=== PATIENT | female | born 2000 | race Caucasian/White ===

== ENCOUNTER → 2021-02-22 | Outpatient (CLI) | payer OTHER ==
[2021-02-22 17:37] LABS: HEMATOCRIT 35.9 % (36.0-47.0); HEMOGLOBIN 11.9 g/dl (12.0-15.5); MEAN CORPUSCULAR HEMOGLOBIN 28.5 pg (27.0-33.0); MEAN CORPUSCULAR HGB CONC 33.1 g/dl (32.0-36.5); MEAN CORPUSCULAR VOLUME 85.9 fl (80.0-96.0); PLATELET COUNT, AUTOMATED 245 10^3/uL (150-450); RED BLOOD COUNT 4.18 10^6/uL (4.00-5.40); WHITE BLOOD COUNT 10.5 10^3/uL (4.0-10.0)
[2021-02-22 20:08] LABS: GC DNA AMPLIFICATION NEGATIVE (NEGATIVE)
== END ==
LOC: M PLALAB 14:34
PROVIDERS: ATTEND Specialist
DX: Z34.82 Encounter for supervision of other normal pregnancy, second trimester (principal)

== ENCOUNTER → 2021-03-31 | Outpatient (CLI) | payer OTHER ==
--- NOTE | 2021-04-02 07:18 | REP ---
INDICATION: ANATOMY COMPARISON: None. TECHNIQUE: Transabdominal obstetrical ultrasound with color Doppler evaluation. FINDINGS: Examination demonstrates a single live intrauterine in breech presentation. motion is identified by technologist. Placenta is noted posterior and grade 2 without evidence for placenta previa or abruption. Amniotic fluid volume is normal. Cervix measures 5.0 cm in length and appears closed.. Selected gestational age: 29 weeks 0 days with WHIT 06/16/2021. Gestational age by current measurements 29 weeks 4 days with WHIT 06/12/2021. FHR equals 142 beats per minute. Estimated weight 1441 grams (64thpercentile). CHATO: 12.1 cm Umbilical artery SD ratio: 2.15 Anatomical assessment demonstrates normal structures including cranium, choroid plexus, cavum, cerebellum/posterior fossa, lungs, four-chamber heart, diaphragm, stomach, cord insertion/three-vessel cord, kidneys/bladder, spine, and extremities. Limited evaluation of the facial features and cardiac ventricular outflow tracts due to positioning. IMPRESSION: Single live intrauterine in breech presentation demonstrating appropriate estimated weight and growth. Anatomical limitations as noted above may warrant re-evaluation and follow-up. <Electronically signed by Dante Mejia > 04/02/21 [id number]
== END ==
LOC: M WHC 12:05
PROVIDERS: ATTEND Specialist
DX: Z34.82 Encounter for supervision of other normal pregnancy, second trimester (principal); Z3A.29 29 weeks gestation of pregnancy

== ENCOUNTER 2021-04-24 08:49 | Outpatient (CLI) | payer OTHER ==
[~2021-04-24] VITALS: Ht 170.2 cm; Wt 88.4 kg
[2021-04-24 09:05] VITALS: BP 140/93
[2021-04-24] MEDS ORDERED: PRENTAB9 PO (09:18)
[2021-04-24 09:20] VITALS: BP 136/93
[2021-04-24 09:35] VITALS: BP 128/76
[2021-04-24 10:08] VITALS: BP 138/78
[2021-04-24 10:42] LABS: HEMATOCRIT 33.1 % (36.0-47.0); MEAN CORPUSCULAR HEMOGLOBIN 28.1 pg (27.0-33.0); MEAN CORPUSCULAR HGB CONC 33.2 g/dl (32.0-36.5); MEAN CORPUSCULAR VOLUME 84.4 fl (80.0-96.0); PLATELET COUNT, AUTOMATED 231 10^3/uL (150-450); RED BLOOD COUNT 3.92 10^6/uL (4.00-5.40); WHITE BLOOD COUNT 11.2 10^3/uL (4.0-10.0)
--- NOTE | 2021-04-24 11:01 | REP ---
INDICATION: vaginal bleeding, evaluate placenta COMPARISON: None. TECHNIQUE: Transabdominal obstetrical ultrasound with color Doppler evaluation. FINDINGS: Examination demonstrates a single live intrauterine in cephalic presentation. motion is identified by technologist. Placenta is noted posteriorly and grade 2 without evidence for placenta previa or obvious abruption. However, evaluation of the placenta is somewhat limited due to advanced age and positioning. Amniotic fluid volume is normal. Cervix measures 5.2 cm in length and appears closed.. Selected gestational age: 32 weeks 3 days with WHIT 06/16/2021. FHR equals 133 beats per minute. CHATO: 10.1 cm Umbilical artery SD ratio: 2.22 (1.82-3.83) Limited anatomical assessment demonstrates no obvious abnormality. IMPRESSION: Limited evaluation of the placenta. No obvious abnormality noted. <Electronically signed by Dante Mejia > 04/24/21 [id number]
[2021-04-24 11:11] LABS: CREATININE,RANDOM URINE 74.8 MG/DL; TOTAL PROTEIN,RANDOM URINE 11.1 MG/DL (0.0-12.0)
[2021-04-24 11:11] LABS: ALT/SGPT 16 U/L (12-78); BILIRUBIN,TOTAL 0.2 MG/DL (0.2-1.0); CREATININE FOR GFR 0.39 MG/DL (0.55-1.30); GLOMERULAR FILTRATION RATE > 60.0 (>60); LDH LACTATE DEHYDROGENASE 192 U/L (84-246); URIC ACID 2.9 MG/DL (2.6-6.0)
--- NOTE | 2021-04-24 12:04 | IPNPDOC ---
Text Note Date of Service The patient was seen on 04/24/21. NOTE Subjective: Ana Cristina is a 21-year-old female who is a at 32.3 weeks [facility] with an WHIT of 06/16/21 based off of her LMP and consistent with her 2nd trimester ultrasound. She initiated care in her second trimester with [facility]. Her has been complicated by minimal care and a history of a previous section. She presents to L&D today with complaints of vaginal bleeding. She reports having intercourse last night and woke up this morning with blood in her underwear mixed with a few small clots. She reports active movement. Denies leaking of fluid or contractions. OB Hx: 09/2019 and 11/2019 miscarriage; 03/07/18 primary LTCS of living male weighting 8 lbs at 40 weeks due to arrest of dilation. Medical Hx: non-contributory Family Hx: non-contributory Surgical Hx: tonsillectomy and section Social Hx: , denies being a smoker, use of alcohol or drugs. Objective: VS, US, labs: see below. FHR:130, moderate variability, positive accelerations, no decelerations. [place]: one contraction noted. General: Alert and oriented. Does not appear to be in any distress. Respiratory: Regular rate without use of accessory muscles. Abdomen: soft and not tender to palpation SSE: cervix anterior, thick and closed. No bleeding noted in the vagina or coming from cervix. Cultures obtained for STIs and genital culture. Assessment: IUP at 32.3, vaginal bleeding after intercourse Plan: Reviewed normal cervical length and normal ultrasound. She had one small episode of bleeding noted prior to discharge that was the size of a silver dollar. Reviewed findings with Dr. Brown and he recommended discharge to home. Encouraged patient pelvic rest. Reviewed access to care, kick count, labor signs and danger signs to report. She has an appointment this week on Saturday, which was encouraged for her to attend. VS,Jaee, I+O VS, Jaee, I+O Laboratory Tests 04/24/21 10:15 Vital Signs Date Time Temp Pulse Resp B/P (MAP) Pulse Ox O2 Delivery O2 Flow Rate FiO2 04/24/21 10:08 76 18 138/78 (98) 04/24/21 09:05 98.3 Item Value Date Time White Blood Count 11.2 10^3/uL H 04/24/21 1015 Red Blood Count 3.92 10^6/uL L 04/24/21 1015 Hemoglobin 11.0 g/dl L 04/24/21 1015 Hematocrit 33.1 % L 04/24/21 1015 Mean Corpuscular Volume 84.4 fl 04/24/21 1015 Mean Corpuscular Hemoglobin 28.1 pg 04/24/21 1015 Mean Corpuscular Hemoglobin Concent 33.2 g/dl 04/24/21 1015 Red Cell Distribution Width 13.5 % 04/24/21 1015 Platelet Count 231 10^3/uL 04/24/21 1015 Item Value Date Time Creatinine 0.39 MG/DL L 04/24/21 1015 Glomerular Filtration Rate > 60.0 04/24/21 1015 Uric Acid 2.9 MG/DL 04/24/21 1015 Total Bilirubin 0.2 MG/DL 04/24/21 1015 Aspartate Amino Transf (AST/SGOT) 14 U/L 04/24/21 1015 Alanine Aminotransferase (ALT/SGPT) 16 U/L 04/24/21 1015 Lactate Dehydrogenase 192 U/L 04/24/21 1015 Item Value Date Time Urine Random Creatinine 74.8 MG/DL 04/24/21 1025 Urine Random Total Protein 11.1 MG/DL 04/24/21 1025 EXAMINATION REQUESTED: Obs. Limited, CHATO US REASON FOR PATIENT VISIT: VAGINAL BLEEDING. REASON FOR EXAM/COMMENT: vaginal bleeding, evaluate placenta INDICATION: vaginal bleeding, evaluate placenta COMPARISON: None. TECHNIQUE: Transabdominal obstetrical ultrasound with color Doppler evaluation. FINDINGS: Examination demonstrates a single live intrauterine in cephalic presentation. motion is identified by technologist. Placenta is noted posteriorly and grade 2 without evidence for placenta previa or obvious abruption. However, evaluation of the placenta is somewhat limited due to advanced age and positioning. Amniotic fluid volume is normal. Cervix measures 5.2 cm in length and appears closed.. Selected gestational age: 32 weeks 3 days with WHIT 06/16/2021. FHR equals 133 beats per minute. CHATO: 10.1 cm Umbilical artery SD ratio: 2.22 (1.82-3.83) Limited anatomical assessment demonstrates no obvious abnormality. IMPRESSION: Limited evaluation of the placenta. No obvious abnormality noted. <Electronically signed by Dante Mejia > 04/24/21 1057 EMILI ROMAN CNM Apr 24, 2021 12:04
[2021-04-24 12:20] LABS: GC DNA AMPLIFICATION NEGATIVE (NEGATIVE)
== END 2021-04-24 11:33 | disposition home or self-care (01) ==
LOC: M LDO 08:49
PROVIDERS: ATTEND Advanced Practice Midwife
DX: O26.853 Spotting complicating pregnancy, third trimester (principal); O34.219 Maternal care for unspecified type scar from previous cesarean delivery; Z3A.32 32 weeks gestation of pregnancy
CPT/HCPCS: 36415; 59025; 76815; 76820; 82247; 82565; 82570; 83615; 84156; 84450; 84460; 84550; 85027; 87070; 87077; 87661; G0378; G0463

== ENCOUNTER 2021-04-26 09:41 | Inpatient (IN) | payer OTHER ==
[~2021-04-26] VITALS: Ht 170.2 cm; Wt 88.6 kg
[2021-04-26 09:59] VITALS: BP 123/74
[2021-04-26] MEDS ORDERED: LACTATED RINGER'S 1000 ML IV STA (11:40)
[2021-04-26] MEDS: BETAMETHASONE SOLUSPAN 6MG/ML 5ML VIAL (J0702 PER 3MG) IM SCH (12:03)
[2021-04-26 12:13] LABS: HEMATOCRIT 32.4 % (36.0-47.0); HEMOGLOBIN 10.8 g/dl (12.0-15.5); MEAN CORPUSCULAR HEMOGLOBIN 27.6 pg (27.0-33.0); MEAN CORPUSCULAR HGB CONC 33.3 g/dl (32.0-36.5); MEAN CORPUSCULAR VOLUME 82.9 fl (80.0-96.0); PLATELET COUNT, AUTOMATED 229 10^3/uL (150-450); RED BLOOD COUNT 3.91 10^6/uL (4.00-5.40); WHITE BLOOD COUNT 10.5 10^3/uL (4.0-10.0)
[2021-04-26 12:14] VITALS: BP 142/86
[2021-04-26] MEDS ORDERED: AZITHROMYCIN 250MG TABLET PO ONE (13:00)
[2021-04-26] MEDS: AMPICILLIN SOD 2 GM in D5W MINI-BAG PLUS 100 ML IV SCH ×2 (13:05→18:17)
[2021-04-26 13:27] LABS: HIV 1&2 SCREEN CENTAUR NEGATIVE (NEGATIVE)
[2021-04-26] MEDS: LR 1,000 ML IV SCH (13:50)
[2021-04-26 16:09] VITALS: BP 126/60
[2021-04-27] MEDS: AMPICILLIN SOD 2 GM in D5W MINI-BAG PLUS 100 ML IV SCH ×4 (01:06→18:31)
[2021-04-27] MEDS: LR 1,000 ML IV SCH ×3 (07:27→21:35)
[2021-04-27 07:30] VITALS: BP 112/53
[2021-04-27 10:11] VITALS: BP 133/59
[2021-04-27] MEDS: BETAMETHASONE SOLUSPAN 6MG/ML 5ML VIAL (J0702 PER 3MG) IM SCH (12:02)
[2021-04-27 14:00] VITALS: BP 122/64
[2021-04-27 18:01] VITALS: BP 132/60
[2021-04-27 22:07] VITALS: BP 117/56
[2021-04-28] MEDS: AMPICILLIN SOD 2 GM in D5W MINI-BAG PLUS 100 ML IV SCH ×2 (00:41→06:42)
[2021-04-28 02:17] VITALS: BP 106/50
[2021-04-28 05:55] VITALS: BP 128/59
[2021-04-28] MEDS: LR 1,000 ML IV SCH ×3 (06:42→19:19)
[2021-04-28 09:58] VITALS: BP 119/58
[2021-04-28 14:00] VITALS: BP 122/60
[2021-04-28] MEDS: AMOXICILLIN 500 MG CAP PO SCH ×2 (14:13→22:06)
[2021-04-28] MEDS ORDERED: HOME MED LIST COMPLETE! XX SCH (17:10)
[2021-04-28 18:00] VITALS: BP 124/66
[2021-04-28] MEDS ORDERED: AMOXICILLIN SUSP 250MG/5ML 100ML BOTTLE (FOR INPATIENT ORDERS) PO SCH (19:00)
[2021-04-28 22:00] VITALS: BP 100/56
[2021-04-29 02:00] VITALS: BP 118/59
[2021-04-29] MEDS: LR 1,000 ML IV SCH ×3 (02:52→20:07)
[2021-04-29 06:00] VITALS: BP 117/63
[2021-04-29] MEDS: AMOXICILLIN 500 MG CAP PO SCH ×3 (06:01→22:36)
[2021-04-29 10:10] VITALS: BP 128/60
[2021-04-29 17:56] VITALS: BP 142/81
[2021-04-29 22:00] VITALS: BP 116/61
[2021-04-30] MEDS: LR 1,000 ML IV SCH ×3 (01:30→17:16)
[2021-04-30 02:00] VITALS: BP 107/56
[2021-04-30] MEDS: AMOXICILLIN 500 MG CAP PO SCH ×3 (05:58→22:00)
[2021-04-30 06:00] VITALS: BP 130/68
[2021-04-30 10:14] VITALS: BP 131/63
[2021-04-30 17:55] VITALS: BP 128/66
[2021-04-30 21:57] VITALS: BP 125/60
[2021-05-01 02:29] VITALS: BP 119/57
[2021-05-01 06:03] VITALS: BP 118/58
[2021-05-01] MEDS: AMOXICILLIN 500 MG CAP PO SCH ×3 (07:10→22:00)
[2021-05-01 09:53] VITALS: BP 123/71
[2021-05-01] MEDS: LR 1,000 ML IV SCH ×2 (11:00→20:00)
[2021-05-01 14:00] VITALS: BP 138/79
[2021-05-01 18:00] VITALS: BP 135/89
[2021-05-01 22:00] VITALS: BP 120/72
[2021-05-02 02:00] VITALS: BP 135/90
[2021-05-02 06:00] VITALS: BP 136/63
[2021-05-02] MEDS: AMOXICILLIN 500 MG CAP PO SCH (06:00)
[2021-05-02 10:00] VITALS: BP 138/74
[2021-05-02 14:00] VITALS: BP 137/72
[2021-05-02 18:32] VITALS: BP 131/74
[2021-05-02] MEDS: LR 1,000 ML IV SCH (19:27)
[2021-05-02 22:08] VITALS: BP 126/72
[2021-05-03 02:00] VITALS: BP 116/62
[2021-05-03] MEDS: LR 1,000 ML IV SCH ×3 (04:02→17:23)
[2021-05-03 06:00] VITALS: BP 127/66
[2021-05-03 09:59] VITALS: BP 108/53
[2021-05-03 18:05] VITALS: BP 108/60
[2021-05-03 20:00] VITALS: BP 108/60
[2021-05-03 22:00] VITALS: BP 100/55
[2021-05-04 02:00] VITALS: BP 127/59
[2021-05-04] MEDS: LR 1,000 ML IV SCH ×3 (04:15→17:31)
[2021-05-04 06:00] VITALS: BP 125/73
[2021-05-04 10:00] VITALS: BP 139/74
[2021-05-04 14:00] VITALS: BP 130/62
[2021-05-04 18:00] VITALS: BP 137/71
[2021-05-04 22:00] VITALS: BP 130/76
[2021-05-05] VITALS (9 sets, daily range): BP systolic 106–125; BP diastolic 55–62
[2021-05-05 05:40] LABS: HEMATOCRIT 29.5 % (36.0-47.0); HEMOGLOBIN 9.8 g/dl (12.0-15.5); MEAN CORPUSCULAR HEMOGLOBIN 28.1 pg (27.0-33.0); MEAN CORPUSCULAR HGB CONC 33.2 g/dl (32.0-36.5); MEAN CORPUSCULAR VOLUME 84.5 fl (80.0-96.0); PLATELET COUNT, AUTOMATED 225 10^3/uL (150-450); RED BLOOD COUNT 3.49 10^6/uL (4.00-5.40); WHITE BLOOD COUNT 11.5 10^3/uL (4.0-10.0)
[2021-05-05] MEDS ORDERED: MORPHINE PRES-FREE INJ 10 MG/10 ML VIAL (J2274) As Ordered ONE (07:11)
[2021-05-05] MEDS ORDERED: OXYTOCIN 30 UNITS IN 0.9% NaCl 500ML IV BAG (J2590) As Ordered ONE ×2 (07:12→10:38)
[2021-05-05] MEDS ORDERED: ceFAZolin SOD 2 GM in IV 1 EA IV ONE (07:35)
[2021-05-05] MEDS ORDERED: BICITRA 30ML SOLN UDC PO ONE (07:35)
[2021-05-05] MEDS: LR 1,000 ML IV SCH (07:55)
[2021-05-05] MEDS ORDERED: METOCLOPRAMIDE INJ 10MG/2ML VIAL (J2765 PER 1) IV PRN (08:57)
[2021-05-05] MEDS ORDERED: NALBUPHINE HCL 10 MG/ML AMP (J2300) IV PRN (08:57)
[2021-05-05] MEDS ORDERED: diphenhydrAMINE 50MG/ML VIAL (J1200) IV PRN (08:57)
[2021-05-05] MEDS ORDERED: NALOXONE INJ 0.4MG/1ML VIAL (J2310 PER 1MG) IV PRN ×2 (08:57)
[2021-05-05] MEDS ORDERED: ONDANSETRON 4MG/2ML VIAL IV PRN ×3 (08:57→10:40)
[2021-05-05] MEDS: DOCUSATE SODIUM 100MG CAPSULE PO SCH ×2 (09:00→22:01)
[2021-05-05] MEDS: PRENATAL VITAMINS CHEWABLE TABLET PO SCH (09:00)
[2021-05-05] MEDS ORDERED: ONDANSETRON 4MG/2ML VIAL As Ordered ONE (09:02)
[2021-05-05] MEDS ORDERED: dexameTHASONE 4 MG/ML 1ML VIAL (J1100 PER 1MG) As Ordered ONE (09:03)
[2021-05-05] MEDS ORDERED: ePHEDrine SULFATE 25 MG/5 ML(5MG/ML) SYRINGE As Ordered ONE (09:03)
[2021-05-05] MEDS ORDERED: PHENYLephrine 500MCG 5ML (100MCG/ML) SYRINGE As Ordered ONE (09:03)
[2021-05-05] MEDS ORDERED: KETOROLAC 60MG 2ML VIAL As Ordered ONE (09:03)
[2021-05-05] MEDS ORDERED: LR 1,000 ML IV SCH (09:05)
[2021-05-05] MEDS ORDERED: OXYTOCIN DRIP 30 UNITS in IV 1 EA IV SCH (09:05)
[2021-05-05] MEDS ORDERED: PERCOCET 5MG/325MG TAB PO PRN ×2 (09:05)
[2021-05-05] MEDS ORDERED: MOM 30ML SUSPENSION UDC PO PRN (09:05)
[2021-05-05] MEDS ORDERED: SIMETHICONE 80MG CHEW TAB PO PRN (09:05)
[2021-05-05] MEDS ORDERED: MEASLES,MUMPS,RUBELLA VACCINE INJ (MMR-II) (90707) SC SCH (09:05)
[2021-05-05] MEDS ORDERED: RHOGAM 300 MCG (1500 IU) INJ (J2790) IM SCH (09:05)
[2021-05-05] MEDS ORDERED: fentaNYL 100 MCG/2 ML INJECTION As Ordered ONE (09:33)
[2021-05-05] MEDS ORDERED: oxyCODONE 5MG TAB PO PRN (10:40)
[2021-05-05] MEDS ORDERED: fentaNYL 100 MCG/2 ML INJECTION IV PRN (10:40)
[2021-05-05] MEDS: KETOROLAC 30 MG/ML 1ML VIAL IV SCH ×2 (15:50→22:01)
[2021-05-06 02:32] VITALS: BP 108/58
[2021-05-06] MEDS: KETOROLAC 30 MG/ML 1ML VIAL IV SCH (04:18)
[2021-05-06 06:06] VITALS: BP 113/57
[2021-05-06 08:12] LABS: HEMATOCRIT 27.7 % (36.0-47.0); HEMOGLOBIN 9.1 g/dl (12.0-15.5); MEAN CORPUSCULAR HEMOGLOBIN 27.7 pg (27.0-33.0); MEAN CORPUSCULAR HGB CONC 32.9 g/dl (32.0-36.5); MEAN CORPUSCULAR VOLUME 84.2 fl (80.0-96.0); PLATELET COUNT, AUTOMATED 219 10^3/uL (150-450); RED BLOOD COUNT 3.29 10^6/uL (4.00-5.40); WHITE BLOOD COUNT 13.7 10^3/uL (4.0-10.0)
[2021-05-06] MEDS: DOCUSATE SODIUM 100MG CAPSULE PO SCH ×2 (09:48→21:01)
[2021-05-06] MEDS: PRENATAL VITAMINS CHEWABLE TABLET PO SCH (09:48)
[2021-05-06 10:00] VITALS: BP 125/64
[2021-05-06] MEDS: IBUPROFEN 800 MG TAB PO SCH ×2 (13:17→21:01)
[2021-05-06 18:00] VITALS: BP 111/59
[2021-05-06 22:00] VITALS: BP 105/66
[2021-05-07 02:00] VITALS: BP 117/78
[2021-05-07] MEDS: IBUPROFEN 800 MG TAB PO SCH ×2 (05:04→13:00)
[2021-05-07 06:00] VITALS: BP 126/66
[2021-05-07] MEDS: DOCUSATE SODIUM 100MG CAPSULE PO SCH (09:01)
[2021-05-07] MEDS: PRENATAL VITAMINS CHEWABLE TABLET PO SCH (09:01)
[2021-05-07 10:00] VITALS: BP 128/69
[2021-05-07] MEDS ORDERED: IBUP80TA PO (13:08)
[2021-05-07] MEDS ORDERED: PERCOCET PO (13:08)
== END 2021-05-07 13:09 | disposition home or self-care (01) | DRG 773 ==
LOC: M LDI 09:41 → M OBS 04-27 09:57 → M LDI 05-05 06:34 → M OBS 05-05 11:55
PROVIDERS: ADMIT Advanced Practice Midwife; ATTEND Obstetrics & Gynecology
PROC: 10D00Z1 Extraction of Products of Conception, Low, Open Approach (ICD-10-PCS; principal; 2021-05-05 08:00)
DX: O42.113 Preterm premature rupture of membranes, onset of labor more than 24 hours following rupture, third trimester (principal); O34.211 Maternal care for low transverse scar from previous cesarean delivery; Z3A.32 32 weeks gestation of pregnancy; Z37.0 Single live birth

== ENCOUNTER → 2021-04-26 | Outpatient (CLI) | payer OTHER ==
[~2021-04-26] MED LIST: PRENTAB9 PO
--- NOTE | 2021-04-26 09:32 | REP ---
INDICATION: F/U ANATOMY, FACE CARDIAC OUTFLOW TRACTS COMPARISON: 04/24/2021 TECHNIQUE: Transabdominal obstetrical ultrasound with color Doppler evaluation. FINDINGS: Examination demonstrates a single live intrauterine in cephalic presentation. motion is identified by technologist. Placenta is noted posterior and grade 2 without evidence for placenta previa or abruption. Cervix appears closed. No substantial amniotic fluid is identified and findings are consistent with anhydramnios. Selected gestational age: 32 weeks 5 days with WHIT 06/16/2021. Gestational age by current measurements 33 weeks 0 days with WHIT 06/14/2021. FHR equals 120 beats per minute. CHATO: 0.0 Umbilical artery SD ratio: 2.60 (1.80-3.80) Estimated weight 2028 grams (44thpercentile). Anatomical assessment demonstrates normal structures including four-chamber heart/ventricular outflow tracts. IMPRESSION: 1. Single live advanced gestation in cephalic presentation demonstrating appropriate estimated weight. 2. Anhydramnios. 3. Normal appearance to the heart and cardiac ventricular outflow tracts. <Electronically signed by Dante Mejia > 04/26/21 0920
== END ==
LOC: M WHC 08:44
PROVIDERS: ATTEND Specialist
DX: Z34.83 Encounter for supervision of other normal pregnancy, third trimester (principal)

== ENCOUNTER 2022-02-08 09:35 | Outpatient (CLI) | payer OTHER ==
[~2022-02-08] VITALS: Ht 170.2 cm; Wt 87.0 kg
[~2022-02-08 09:35] MED LIST changes: +IBUP80TA PO; +PERCOCET PO
[2022-02-08] MEDS ORDERED: VIT1TABL22 PO (10:20)
[2022-02-08 10:24] VITALS: BP 111/57
[2022-02-08 10:33] VITALS: BP 111/65
[2022-02-08] MEDS ORDERED: LR 1,000 ML IV SCH (11:00)
[2022-02-08 11:47] LABS: HEMATOCRIT 28.9 % (36.0-47.0); HEMOGLOBIN 9.8 g/dl (12.0-15.5); MEAN CORPUSCULAR HEMOGLOBIN 27.8 pg (27.0-33.0); MEAN CORPUSCULAR HGB CONC 33.9 g/dl (32.0-36.5); MEAN CORPUSCULAR VOLUME 82.1 fl (80.0-96.0); PLATELET COUNT, AUTOMATED 216 10^3/uL (150-450); RED BLOOD COUNT 3.52 10^6/uL (4.00-5.40); WHITE BLOOD COUNT 11.6 10^3/uL (4.0-10.0)
[2022-02-08 12:02] VITALS: BP 136/80
[2022-02-08] MEDS ORDERED: BETAMETHASONE SOLUSPAN 6MG/ML 5ML VIAL (J0702 PER 3MG) IM ONE (12:05)
[2022-02-08 12:07] LABS: INR 1.05; PROTHROMBIN TIME 14.2 SECONDS (12.7-14.5)
[2022-02-08 12:17] LABS: PARTIAL THROMBOPLASTIN TIME 29.7 SECONDS (25.9-37.0)
[2022-02-08 12:19] LABS: ALBUMIN 2.3 GM/DL (3.2-5.2); ALT/SGPT 16 U/L (12-78); BILIRUBIN,TOTAL 0.2 MG/DL (0.2-1.0); BLOOD UREA NITROGEN 3 MG/DL (7-18); CALCIUM LEVEL 8.5 MG/DL (8.5-10.1); CARBON DIOXIDE LEVEL 18 MEQ/L (21-32); CHLORIDE LEVEL 108 MEQ/L (98-107); CREATININE FOR GFR 0.25 MG/DL (0.55-1.30); GLOMERULAR FILTRATION RATE > 60.0 (>60); GLUCOSE, FASTING 90 MG/DL (70-100); POTASSIUM SERUM 3.7 MEQ/L (3.5-5.1); SODIUM LEVEL 136 MEQ/L (136-145); TOTAL PROTEIN 5.5 GM/DL (6.4-8.2)
[2022-02-08 13:20] VITALS: BP 119/59
[2022-02-08 14:31] VITALS: BP 122/63
== END 2022-02-08 16:20 | disposition other institution (70) ==
LOC: M LDO 09:35
PROVIDERS: ATTEND Specialist
DX: O46.93 Antepartum hemorrhage, unspecified, third trimester (principal); O44.33 Partial placenta previa with hemorrhage, third trimester; O32.1XX9 Maternal care for breech presentation, other fetus; O34.219 Maternal care for unspecified type scar from previous cesarean delivery; Z3A.31 31 weeks gestation of pregnancy
CPT/HCPCS: 59025; 76815; 76820; 80053; 85027; 85610; 85730; 86780; 86850; 86900; 86901; 86920; 87635; 96372; G0463; J0702

== ENCOUNTER 2022-02-22 14:01 | Inpatient (IN) | payer OTHER ==
[~2022-02-22] VITALS: Ht 170.2 cm; Wt 86.4 kg
[2022-02-22] VITALS (8 sets, daily range): BP systolic 120–148; BP diastolic 58–93
[~2022-02-22 14:01] MED LIST changes: +VIT1TABL22 PO
[2022-02-22] MEDS ORDERED: HOME MED LIST COMPLETE! XX SCH (14:20)
[2022-02-22] MEDS ORDERED: LR 1,000 ML IV SCH (14:40)
[2022-02-22 15:07] LABS: HEMATOCRIT 29.6 % (36.0-47.0); HEMOGLOBIN 9.8 g/dl (12.0-15.5); MEAN CORPUSCULAR HEMOGLOBIN 27.2 pg (27.0-33.0); MEAN CORPUSCULAR HGB CONC 33.1 g/dl (32.0-36.5); MEAN CORPUSCULAR VOLUME 82.2 fl (80.0-96.0); PLATELET COUNT, AUTOMATED 231 10^3/uL (150-450); WHITE BLOOD COUNT 14.9 10^3/uL (4.0-10.0)
[2022-02-22 15:58] LABS: ALT/SGPT 21 U/L (12-78); BILIRUBIN,TOTAL 0.3 MG/DL (0.2-1.0); CREATININE FOR GFR 0.24 MG/DL (0.55-1.30); GLOMERULAR FILTRATION RATE > 60.0 (>60); LDH LACTATE DEHYDROGENASE 317 U/L (84-246); URIC ACID 2.5 MG/DL (2.6-6.0)
[2022-02-22 16:00] LABS: INR 1.04
[2022-02-22 16:01] LABS: PARTIAL THROMBOPLASTIN TIME 32.1 SECONDS (25.9-37.0)
[2022-02-22 17:15] LABS: CREATININE,RANDOM URINE 93.3 MG/DL; TOTAL PROTEIN,RANDOM URINE 12.7 MG/DL (0.0-12.0)
[2022-02-23] VITALS (13 sets, daily range): BP systolic 107–156; BP diastolic 53–89
[2022-02-24 02:15] VITALS: BP 100/50
[2022-02-24 06:07] VITALS: BP 97/50
[2022-02-24 10:00] VITALS: BP 116/60
[2022-02-24 14:00] VITALS: BP 95/50
[2022-02-24 18:00] VITALS: BP 113/56
[2022-02-24 21:59] VITALS: BP 107/55
[2022-02-25 02:10] VITALS: BP 115/59
[2022-02-25 06:20] VITALS: BP 115/58
[2022-02-25 10:00] VITALS: BP 114/65
[2022-02-25 14:00] VITALS: BP 118/64
[2022-02-25 18:00] VITALS: BP 111/82
[2022-02-25 22:00] VITALS: BP 120/67
[2022-02-26 02:00] VITALS: BP 111/60
[2022-02-26 06:00] VITALS: BP 117/62
[2022-02-26 10:00] VITALS: BP 103/66
[2022-02-26 17:55] VITALS: BP 117/58
[2022-02-26 22:00] VITALS: BP 114/61
[2022-02-27] VITALS (11 sets, daily range): BP systolic 91–115; BP diastolic 47–72
[2022-02-27] MEDS ORDERED: LACTATED RINGER'S 1000 ML IV STA (05:32)
[2022-02-27] MEDS ORDERED: BICITRA 30ML SOLN UDC PO ONE (05:35)
[2022-02-27 06:43] LABS: HEMATOCRIT 27.6 % (36.0-47.0); MEAN CORPUSCULAR HEMOGLOBIN 26.5 pg (27.0-33.0); MEAN CORPUSCULAR HGB CONC 32.6 g/dl (32.0-36.5); MEAN CORPUSCULAR VOLUME 81.4 fl (80.0-96.0); PLATELET COUNT, AUTOMATED 213 10^3/uL (150-450); RED BLOOD COUNT 3.39 10^6/uL (4.00-5.40); WHITE BLOOD COUNT 12.1 10^3/uL (4.0-10.0)
[2022-02-27] MEDS ORDERED: ceFAZolin SOD 2 GM in IV 1 EA IV ONE (07:25)
[2022-02-27] MEDS ORDERED: OXYTOCIN INJ 10 UNITS/ML VIAL (J2590) As Ordered ONE (08:04)
[2022-02-27] MEDS ORDERED: MORPHINE PRES-FREE INJ 10 MG/10 ML VIAL As Ordered ONE (08:04)
[2022-02-27 08:37] LABS: CORD GAS HCO3 V 21.5 MEQ/L; CORD GAS O2 SAT V 74.6 %; CORD GAS PCO2 V 44.6 mmHg; CORD GAS PH V 7.3 UNITS; CORD GAS PO2 V 31.8 mmHg; CORD GAS SBC V 19.9 MEQ/L; CORD GAS TCO2 V 22.8 MEQ/L
[2022-02-27] MEDS ORDERED: MIDAZOLAM INJ 2MG/2ML VIAL (J2250 PER 1MG) As Ordered ONE (08:37)
[2022-02-27] MEDS ORDERED: ONDANSETRON 4MG 2ML VIAL As Ordered ONE (08:39)
[2022-02-27] MEDS ORDERED: fentaNYL 100 MCG/2 ML INJECTION IV PRN (09:30)
[2022-02-27] MEDS ORDERED: MEPERIDINE INJ 25 MG/ML VIAL (J2175) IV PRN (09:30)
[2022-02-27] MEDS ORDERED: **NOTE PATIENT COMMENT** MISC XX SCH (09:30)
[2022-02-27] MEDS ORDERED: SLF 3 ML SYR IV SCH (09:30)
[2022-02-27] MEDS ORDERED: oxyCODONE 5MG TAB PO PRN (09:30)
[2022-02-27] MEDS ORDERED: diphenhydrAMINE 50MG/ML VIAL (J1200) IV PRN (09:30)
[2022-02-27] MEDS ORDERED: ONDANSETRON 4MG 2ML VIAL IV PRN ×2 (09:30→09:45)
[2022-02-27] MEDS ORDERED: HYDROMORPHONE HCL 0.5 MG/ 0.5 ML SYRINGE (J1170 PER 1) IV PRN (09:30)
[2022-02-27] MEDS ORDERED: METOCLOPRAMIDE INJ 10MG/2ML VIAL (J2765 PER 1) IV PRN (09:30)
[2022-02-27] MEDS ORDERED: NALOXONE INJ 0.4MG/1ML VIAL (J2310 PER 1MG) IV PRN ×2 (09:30)
[2022-02-27] MEDS ORDERED: RHOGAM 300 MCG (1500 IU) INJ (J2790) IM SCH (09:45)
[2022-02-27] MEDS ORDERED: PERCOCET 5MG/325MG TAB PO PRN (09:45)
[2022-02-27] MEDS ORDERED: OXYTOCIN DRIP 30 UNITS in IV 1 EA IV SCH (09:45)
[2022-02-27] MEDS ORDERED: SIMETHICONE 80MG CHEW TAB PO PRN (09:45)
[2022-02-27] MEDS ORDERED: OXYTOCIN 30 UNITS IN 0.9% NaCl 500ML IV BAG (J2590) As Ordered ONE (09:48)
[2022-02-27] MEDS: LR 1,000 ML IV SCH ×3 (09:52→22:06)
[2022-02-27] MEDS ORDERED: KETOROLAC 30 MG/ML 1ML VIAL As Ordered ONE (09:53)
[2022-02-27] MEDS: KETOROLAC 30 MG/ML 1ML VIAL IV SCH ×3 (09:54→21:52)
[2022-02-27] MEDS: PRENATAL VITAMINS CHEWABLE TABLET PO SCH (11:18)
[2022-02-28 02:00] VITALS: BP 109/54
[2022-02-28] MEDS: KETOROLAC 30 MG/ML 1ML VIAL IV SCH (04:44)
[2022-02-28 06:00] VITALS: BP 108/54
[2022-02-28] MEDS: PRENATAL VITAMINS CHEWABLE TABLET PO SCH (07:58)
[2022-02-28 08:28] LABS: HEMATOCRIT 29.5 % (36.0-47.0); HEMOGLOBIN 9.6 g/dl (12.0-15.5); MEAN CORPUSCULAR HEMOGLOBIN 27.4 pg (27.0-33.0); MEAN CORPUSCULAR HGB CONC 32.5 g/dl (32.0-36.5); PLATELET COUNT, AUTOMATED 168 10^3/uL (150-450); RED BLOOD COUNT 3.51 10^6/uL (4.00-5.40)
[2022-02-28 10:00] VITALS: BP 118/57
[2022-02-28] MEDS: IBUPROFEN 800 MG TAB PO SCH ×2 (11:51→19:57)
[2022-02-28 14:00] VITALS: BP 110/55
[2022-02-28] MEDS: PERCOCET 5MG/325MG TAB PO PRN (16:49)
[2022-02-28] MEDS: DOCUSATE SODIUM 100MG CAPSULE PO PRN ×2 (16:49→19:57)
[2022-02-28 18:00] VITALS: BP 116/61
[2022-02-28 22:06] VITALS: BP 114/83
[2022-03-01] MEDS: PERCOCET 5MG/325MG TAB PO PRN (00:41)
[2022-03-01 02:02] VITALS: BP 117/65
[2022-03-01] MEDS: IBUPROFEN 800 MG TAB PO SCH ×2 (03:33→12:23)
[2022-03-01 05:59] VITALS: BP 104/55
[2022-03-01] MEDS ORDERED: MEASLES,MUMPS,RUBELLA VACCINE INJ (MMR-II) (90707) SC.IMMUN ONE (09:00)
[2022-03-01] MEDS: PRENATAL VITAMINS CHEWABLE TABLET PO SCH (09:10)
[2022-03-01] MEDS ORDERED: PERCOCET PO ×2 (12:33→12:34)
[2022-03-01] MEDS ORDERED: IBUP80TA PO (12:33)
[2022-03-01] MEDS ORDERED: COLA100C5 PO (12:33)
== END 2022-03-01 13:44 | disposition home or self-care (01) | DRG 773 ==
LOC: M LDO 14:01 → M LDI 02-23 09:28 → M OBS 02-23 15:57 → M LDI 02-27 05:30 → M OBS 02-27 10:43
PROVIDERS: ADMIT Obstetrics & Gynecology; ATTEND Specialist
PROC: 10D00Z1 Extraction of Products of Conception, Low, Open Approach (ICD-10-PCS; principal; 2022-02-27 07:30)
DX: O44.13 Complete placenta previa with hemorrhage, third trimester (principal); Z3A.33 33 weeks gestation of pregnancy; O34.211 Maternal care for low transverse scar from previous cesarean delivery; O45.93 Premature separation of placenta, unspecified, third trimester; O32.8XX0 Maternal care for other malpresentation of fetus, not applicable or unspecified; Z37.0 Single live birth